=== PATIENT | female | born 1940 | race Caucasian/White ===

== ENCOUNTER 2016-08-23 10:49 | Day surgery (SDC) | payer OTHER, MEDICARE ==
[2016-08-23] MEDS ORDERED: LR 1,000 ML IV ONE (10:58)
[2016-08-23] MEDS ORDERED: LIDOCAINE 1% 5 ML SDV ID PRN (10:58)
[2016-08-23] MEDS ORDERED: LIDOCAINE 1% 2 ML INJ ONE (11:17)
[2016-08-23] MEDS ORDERED: PROPOFOL 200 MG/20 ML VIAL ONE (11:37)
[2016-08-23] MEDS ORDERED: MIDAZOLAM 2 MG/2 ML VIAL ONE (11:37)
[2016-08-23] MEDS ORDERED: LIDOCAINE 2% 5 ML SDV ONE (12:11)
--- NOTE | 2016-08-23 13:43 | GPN ---
[f rep st] PROCEDURE NOTE DATE OF PROCEDURE: 08/23/2016 PROCEDURE: Colonoscopy with snare polypectomy, excisional biopsy. INDICATION: The patient is a 75-year-old female with a history of a complex polyps who presents for surveillance colonoscopy. CONSENT: Risks, benefits, and alternatives of the procedure were discussed in great detail with the patient. Risks of infection, bleeding, perforation, and sedation were discussed. All questions were answered. Informed consent was obtained. MEDICATIONS: Propofol. Please see Anesthesiology record for details. ESTIMATED BLOOD LOSS: Insignificant. COLONOSCOPIC EVALUATION: A rectal exam was performed and no palpable masses were felt. The scope was introduced via the rectum and advanced to the cecum where the ileocecal valve and appendiceal orifice were seen. The quality of prep was good. A 2mm sessile polyp was seen in the cecum and removed by biopsy forceps. Two sessile polyps measuring measuring 3-6mm were seen in the ascending colon. The 3mm polyp was seen adjacent to a tattoo tamar and was removed by excisional biopsy. The 6mm polyp was removed by snare polypectomy. Two other sessile polyps ranging from 4-6mm were visualized in the transverse colon and removed by snare polypectomy. Large diverticula were noted, especially in the left colon. IMPRESSION: 1. Diverticulosis. 2. Colonic polyps x5. RECOMMENDATIONS: 1. Follow up on biopsy results. 2. Repeat colonoscopy in 3 years. 3. Continue current medications. 4. Advance diet. /[id number]/[id number]
== END 2016-08-23 13:25 | disposition home or self-care (01) ==
LOC: FSGY 10:49
PROVIDERS: ATTEND Internal Medicine Gastroenterology
PROC: 0DBM8ZX Excision of Descending Colon, Via Natural or Artificial Opening Endoscopic, Diagnostic (ICD-10-PCS; principal; 2016-08-23 11:45)
PROC: 0DBK8ZX Excision of Ascending Colon, Via Natural or Artificial Opening Endoscopic, Diagnostic (ICD-10-PCS; principal; 2016-08-23 11:45)
PROC: 0DBH8ZX Excision of Cecum, Via Natural or Artificial Opening Endoscopic, Diagnostic (ICD-10-PCS; principal; 2016-08-23 11:45)
DX: Z12.11 Encounter for screening for malignant neoplasm of colon (principal); D12.0 Benign neoplasm of cecum; D12.2 Benign neoplasm of ascending colon; D12.3 Benign neoplasm of transverse colon; D12.4 Benign neoplasm of descending colon; K57.30 Diverticulosis of large intestine without perforation or abscess without bleeding; I25.10 Atherosclerotic heart disease of native coronary artery without angina pectoris; E11.9 Type 2 diabetes mellitus without complications; I10 Essential (primary) hypertension; E66.9 Obesity, unspecified; I25.2 Old myocardial infarction; Z95.5 Presence of coronary angioplasty implant and graft; Z86.010 Personal history of colon polyps
CPT/HCPCS: J2250; J2704

== ENCOUNTER → 2017-02-25 | Outpatient (CLI) | payer OTHER, MEDICARE | LOC: BHFA 09:00 | PROVIDERS: ATTEND Internal Medicine Cardiovascular Disease | DX: R07.9 Chest pain, unspecified (principal) | CPT/HCPCS: 78452; 93017; A9500; J2785 ==

== ENCOUNTER → 2018-01-31 | Outpatient (CLI) | payer OTHER, MEDICARE | LOC: FIMAGING 13:08 | PROVIDERS: ATTEND Internal Medicine | DX: K76.0 Fatty (change of) liver, not elsewhere classified (principal); K76.89 Other specified diseases of liver; E11.9 Type 2 diabetes mellitus without complications; I10 Essential (primary) hypertension; E78.5 Hyperlipidemia, unspecified ==